=== PATIENT | male | born 1970 | race Caucasian/White ===

== ENCOUNTER 2021-04-12 09:38 | Emergency (ER) | payer OTHER ==
[2021-04-12 10:13] VITALS: BMI 31.0
[2021-04-12] MEDS ORDERED: PROPOFOL 200 MG/20 ML VIAL IVPUSH ONE ×2 (10:57→11:39)
[2021-04-12] MEDS ORDERED: ACETAMINOPHEN 1000 MG/100 ML BAG IVPB ONE (11:04)
[2021-04-12] MEDS ORDERED: SODIUM CHLORIDE 0.9% 500 ML INFUS.BAG IV ONE (11:04)
[2021-04-12] MEDS ORDERED: ACETAMINOPHEN INJECTION 100 ML IVPB ONE (11:24)
[2021-04-12] MEDS ORDERED: PROPOFOL 20 ML ONE (11:24)
[2021-04-12] MEDS ORDERED: PROPOFOL 1,000,000 MCG/100 ML VIAL ONE (11:25)
[2021-04-12 15:55] VITALS: BP 129/97; PULSE 88; TEMP 97.9
== END 2021-04-12 13:14 | disposition home or self-care (01) ==
LOC: JER 09:38
PROC: 0RSJXZZ Reposition Right Shoulder Joint, External Approach (ICD-10-PCS; principal; 2021-04-12)
PROC: 2W38X1Z Immobilization of Right Upper Extremity using Splint (ICD-10-PCS; 2021-04-12)
PROC: 3E0333Z Introduction of Anti-inflammatory into Peripheral Vein, Percutaneous Approach (ICD-10-PCS; 2021-04-12)
PROC: 3E033GC Introduction of Other Therapeutic Substance into Peripheral Vein, Percutaneous Approach (ICD-10-PCS; 2021-04-12)
PROC: 3E033GC Introduction of Other Therapeutic Substance into Peripheral Vein, Percutaneous Approach (ICD-10-PCS; 2021-04-12)
DX: S43.004A Unspecified dislocation of right shoulder joint, initial encounter (principal); W10.9XXA Fall (on) (from) unspecified stairs and steps, initial encounter
CPT/HCPCS: 73030-TC-RT-FY; 99285-25